=== PATIENT | male | born 1955 | race Hispanic/Latino ===

== ENCOUNTER 2018-06-07 05:28 | Observation (INO) | payer OTHER ==
[2018-06-05 16:32] LABS: BASOPHILS # (AUTO) 0.1 (0.0-0.1); BASOPHILS % 0.9 % (0.0-1.0); EOSINOPHILS # (AUTO) 0.2 (0.0-0.4); EOSINOPHILS % 2.5 % (0.0-6.0); HEMOGLOBIN 15.2 g/dL (14.0-18.0); LYMPHOCYTES # (AUTO) 2.5 (1.0-3.2); LYMPHOCYTES % 26.5 % (18.0-39.1); MEAN CORPUSCULAR HEMOGLOBIN 29.6 pg (28-32); MEAN CORPUSCULAR VOLUME 89.5 fL (81-99); MONOCYTES # (AUTO) 0.6 (0.2-0.8); MONOCYTES % 6.1 % (4.4-11.3); NEUTROPHILS % 63.7 % (38.7-80.0); PLATELET COUNT 224 x10e3/uL (140-360); RED BLOOD COUNT 5.14 x10e6/uL (4.3-5.7)
[2018-06-05 16:42] LABS: INR 0.87; PROTHROMBIN TIME 12.7 seconds (11.9-14.5)
[2018-06-05 16:43] LABS: PARTIAL THROMBOPLASTIN TIME 30.9 seconds (23.8-35.5)
[2018-06-05 16:47] LABS: CALCIUM 10.3 mg/dL (8.4-10.2); CREATININE, SERUM 1.79 mg/dL (0.72-1.25)
--- NOTE | 2018-06-05 17:08 | Diagnostic Imaging Report ---
EXAMINATION: CHEST 2 VIEWS INDICATION: Pre-operative radiographs, lumbar spine surgery. COMPARISON: None FINDINGS: TUBES and LINES: None. LUNGS: Lungs are well inflated. Lungs are clear. There is no evidence of pneumonia or pulmonary edema. PLEURA: No pleural effusion or pneumothorax. HEART AND MEDIASTINUM: The cardiomediastinal silhouette is unremarkable. Status post CABG. BONES AND SOFT TISSUES: No acute radiographic abnormality. Status post median sternotomy. UPPER ABDOMEN: No free air under the diaphragm. IMPRESSION: No acute radiographic abnormality. Signed by: Dr. Mikie Gibson MD on 06/05/2018 5:05 PM
[~2018-06-07] VITALS: Ht 180.3 cm; Wt 96.6 kg
[2018-06-07] VITALS (8 sets, daily range): BP systolic 93–110; BP diastolic 52–59
[~2018-06-07 05:28] MED LIST: ASPIRIN325 MG PO; CRESTOR10 MG PO; CYMBALTA30 MG PO; FUROSEMIDE40 MG PO; GLIMEPIRIDE2 MG PO; LISINOPRIL10 MG PO; METFORMIN HCL500 MG PO; METOPROLOL SUCC25 MG PO; PLAVIX75 MG PO
--- OUTSIDE RECORDS SUMMARY | 2018-06-07 05:33 | XMS REPORT | Continuity of Care Document ---
Author Author [facility] Interface Address Unknown Phone Unavailable Problems Problem Status Onset Date Classification Date Reported Comments Source INCLUDING DISTAL ABDOMINAL AORTA AND JONATHAN Active 03/15/2018 [facility] CHEST PAIN Active 11/08/2017 [facility] UNK Active 07/07/2016 [facility] Frozen shoulder<sup>1</sup> Active Problem 11/15/2017 right [facility] CAD (<span ID="[id number]">Confirmed</span>) Active Problem 11/15/2017 [facility] Occlusion of coronary artery stent Active Problem 11/15/2017 [facility] Stroke Active Problem 11/15/2017 [facility] Diabetes Active Problem 11/15/2017 [facility] SOBOE (<span ID="[id number]">Confirmed</span>) Active Problem 11/15/2017 [facility] Acid reflux Active Problem 11/15/2017 [facility] HTN (<span ID="[id number]">Confirmed</span>) Active Problem 11/15/2017 [facility] Heart attack Resolved Problem 11/15/2017 [facility] S/P CABG x 3 Active Problem 11/15/2017 [facility] Right sided weakness Active Problem 11/15/2017 [facility] Apnea, sleep Resolved Problem 11/15/2017 [facility] ENCOUNTER FOR SCREENING FOR MALIGNANT NE Active [facility] PERSONAL HISTORY OF COLONIC POLYPS Active [facility] CHEST PAIN, UNSPECIFIED Active [facility] ATHSCL [place] ARTERIES OF EXTRM W INTRMT Active [facility] Medications Medication Details Route Status Patient Instructions Ordering Provider Order Date Source Microencapsulated Potassium Chloride 20 MEQ Extended Release Oral Tablet [Klor-Con] 20 mEq=1 tab, PO, Daily, # 30 tab, 0 Refill(s), Pharmacy: [id number] Active 11/12/2017 [facility] Furosemide 40 MG Oral Tablet 40 mg=1 tab, PO, Daily, # 30 tab, 0 Refill(s), Pharmacy: [id number] Active 11/12/2017 [facility] Docusate Sodium 100 MG Oral Capsule [Colace] 100 mg, 1 cap, Route: PO, Drug form: CAP, BID, Dosing Weight 103, kg, Start date: 11/11/17 21:00:00 CDT, Duration: 30 day, Stop date: 12/11/17 17:00:00 CDTNotes: (Same as: Colace) (Do Not Crush) No Longer Active 11/12/2017 [facility] Docusate Sodium 100 MG Oral Capsule [Colace] 100 mg, 1 cap, Route: PO, Drug form: CAP, Daily, Dosing Weight 103, kg, PRN Constipation, Start date: 11/11/17 19:27:00 CDT, Duration: 30 day, Stop date: 12/11/17 19:26:00 CDTNotes: (Same as: Colace) (Do Not Crush) No Longer Active 11/12/2017 [facility] Potassium Chloride 40 mEq, 2 tab, Route: PO, Drug form: ERTAB, ONCE, Dosing Weight 103, kg, Start date: 11/11/17 17:08:00 CDT, Stop date: 11/11/17 17:08:00 CDTNotes: (Same as: K-Dur 20) "Do Not Crush" For patien ts unable to swallow tablet, dissolve in one half glass of water. Allow about 2 minutes for the tablets to disintegrate. Stir before giving to prepare slurry and administer. Please exclude Patient’s with feeding tube less than 14 Far[place] (Dobhoff, J-tube etc) and pediatric and patients. With food and full glass of water Inactive 11/11/2017 [facility] Magnesium Sulfate 2 gm, 50 mL, Route: IVPB, Drug form: INJ, ONCE, Dosing Weight 103, kg, Start date: 11/11/17 17:08:00 CDT, Stop date: 11/11/17 17:08:00 CDTNotes: WASTE: F/P - Sink; E - Municipal Trash Bin Inactive 11/11/2017 [facility] Bumex 1 mg, 1 tab, Route: PO, Drug form: TAB, BID, Dosing Weight 103, kg, Start date: 11/11/17 17:00:00 CDT, Duration: 30 day, Stop date: 12/11/17 9:00:00 CDTNotes: (Same As: Bumex) No Longer Active 11/11/2017 [facility] bumetanide 10 mg + Sodium Chloride 0.9% (titrate) 60 mL 60 mL, Rate: Infuse as directed, Dosing Weight 100, kg, Route: IV, Total Volume: 100 mL, Start Date: 11/10/17 15:11:00 CDT, Duration: 30 day, Stop date: 12/10/17 15:10:00 CDT, Replace Every: 24 hrNotes: (Same As: Bumex) No Longer Active 11/10/2017 [facility] Nitroglycerin 100 mg, 250 mL, Rate: 5 mcg/min, Start Dose: 10 microgram/min, Titration: do not titrate, Goal(s): MAP >60, Max Dose: 200 mcg/min, Route: IV, Dosing Weight 100 kg, Total Volume: 250, Start date: 10/23 15:11:00 CDT, Duration: 30 day, Stop date: ...Notes: (Same as:Tridil) Final conc=0.4 mg/ml. Premix bottle. No Longer Active 11/10/2017 [facility] Acetaminophen 650 mg, Route: PO, Drug form: TAB, Q4H, Dosing Weight 100, kg, PRN Pain Score 1-3, Start date: 11/10/17 15:10:00 CDT, Duration: 30 day, Stop date: 12/10/17 15:09:00 CDT Inactive 11/10/2017 [facility] Aluminum Hydroxide 40 MG/ML / Magnesium Hydroxide 40 MG/ML / Simethicone 4 MG/ML Oral Suspension 30 mL, Route: PO, Drug Form: SUSP, Dosing Weight 100, kg, Q12H, PRN Indigestion, Start date: 11/10/17 15:10:00 CDT, Duration: 30 day, Stop date: 12/10/17 15:09:00 CDTNotes: (aluminum hydroxide-magnesium hyd-simethicone [phone]/5ml 30 ml ud MICHAEL) No Longer Active 11/10/2017 [facility] aspirin 325 mg tablet 325 mg, 1 tab, Route: PO, Drug form: TAB, Bedtime, Dosing Weight 100, kg, Start date: 11/09/17 21:00:00 CDT, Duration: 30 day, Stop date: 12/08/17 21:00:00 CDTNotes: Take with food. No Longer Active 11/10/2017 [facility] Januvia 50 mg, 2 tab, Route: PO, Drug form: TAB, Bedtime, Dosing Weight 100, kg, Start date: 11/09/17 21:00:00 CDT, Duration: 30 day, Stop date: 12/08/17 21:00:00 CDTNotes: Same as Januvia No Longer Active 11/10/2017 [facility] Lisinopril 5 mg, Route: PO, Drug form: TAB, Bedtime, Dosing Weight 100, kg, Start date: 11/09/17 21:00:00 CDT, Duration: 30 day, Stop date: 12/08/17 21:00:00 CDT No Longer Active 11/10/2017 [facility] metoprolol extended release 25 mg, 1 tab, Route: PO, Drug form: ERTAB, Daily, Start date: 11/09/17 9:00:00 CDT, Duration: 30 day, Stop date: 12/08/17 9:00:00 CDTNotes: (Same as: Toprol XL) Do Not Crush No Longer Active 11/09/2017 [facility] Lisinopril 10 mg, 2 tab, Route: PO, Drug form: TAB, Daily, Dosing Weight 100, kg, Start date: 11/09/17 9:00:00 CDT, Duration: 30 day, Stop date: 12/08/17 9:00:00 CDTNotes: (Same as: Prinivil, Zestril) No Longer Active 11/09/2017 [facility] glimepiride 4 mg, PO, Daily, 0 Refill(s) Active 11/09/2017 [facility] Enoxaparin 100 mg, 1 mL, Route: SUB-Q, Drug form: INJ, [id number], Dosing Weight 100, kg, Priority: STAT, Start date: 11/09/17 7:14:00 CDT, Duration: 30 day, Stop date: 12/08/17 20:00:00 CDTNotes: Nurse to ensure do cumentation of patient education per anticoagulation policy. (Same as: Lovenox) No Longer Active 11/09/2017 [facility] Nitroglycerin 100 mg, 250 mL, Rate: Titrate, Start Dose: 5 microgram/min, Titration: DNT, Goal(s): Chest pain and SBP between 100 - 150 mmHg, Max Dose: 5 mcg, Route: IV, Dosing Weight 100 kg, Total Volume: 250, Start date: 11/09/17 7:13:00 CDT, Duration: 30 day, St...Notes: (Same as:Tridil) Final conc=0.4 mg/ml. Premix bottle. No Longer Active 11/09/2017 [facility] heparin additive 25,000 unit [11.7 unit/kg/hr] + Premix Diluent Dextrose 5% 500 mL 500 mL, Rate: 19.93 ml/hr, Infuse over: 25.1 hr, Route: IV, Dosing Weight 85.18 kg, Total Volume: 500 mL, Start date: 11/09/17 0:06:00 CDT, Stop date: 12/09/17 0:05:00 CDT, 2.08, m2 Inactive 11/09/2017 [facility] Heparin 30 unit/kg Bolus (Heparin Dosing Weight) Route: IVP, PRN, 2,600 unit, 2.6 mL, Drug form: INJ, PRN, Heparin Protocol, Start date: 11/09/17 0:06:00 CDT Stop date: 12/09/17 0:05:00 CDT, 30 day Inactive 11/09/2017 [facility] Heparin 60 unit/kg Bolus (Heparin Dosing Weight) Route: IVP, PRN, 5,100 unit, 5.1 mL, Drug form: INJ, PRN, Heparin Protocol, Start date: 11/09/17 0:06:00 CDT Stop date: 12/09/17 0:05:00 CDT, 30 day Inactive 11/09/2017 [facility] gabapentin 600 MG Oral Tablet 600 mg, 2 cap, Route: PO, Drug form: CAP, Q8H, Dosing Weight 100, kg, Start date: 11/09/17 0:00:00 CDT, Duration: 30 day, Stop date: 12/08/17 16:00:00 CDTNotes: (Same as: Neurontin) No Longer Active 11/09/2017 [facility] rosuvastatin 10 mg, 2 tab, Route: PO, Drug form: TAB, Bedtime, Dosing Weight 100, kg, Start date: 11/08/17 21:56:00 CDT, Duration: 30 day, Stop date: 12/08/17 21:00:00 CDTNotes: Same as Crestor No Longer Active 11/09/2017 [facility] Plavix 75 mg, 1 tab, Route: PO, Drug form: TAB, Bedtime, Dosing Weight 100, kg, Start date: 11/08/17 21:55:00 CDT, Duration: 30 day, Stop date: 12/08/17 21:00:00 CDTNotes: (Same As: Plavix) No Longer Active 11/09/2017 [facility] Insulin Lispro 1 unit, 0.01 mL, Route: SUB-Q, Drug form: SOLN, Bedtime, Dosing Weight 100, kg, PRN Blood Glucose Results, Start date: 11/08/17 21:41:00 CDT, Duration: 30 day, Stop date: 12/08/17 21:40:00 CDTNotes: (Same as: Humalog ) Roll in palms of hands gently; Do not shake `vigorously. "Single Patient Use Only " WASTE: F/P - Black; E - [employer] Trash Bin Stable for 28 days at room temperature. Expires in days from Date No Longer Active 11/09/2017 [facility] Dextrose 50% Syringe 25 gm, 50 mL, Route: IVP, Drug Form: INJ, Dosing Weight 100, kg, PRN, PRN Blood Glucose Results, Start date: 11/08/17 21:41:00 CDT, Duration: 30 day, Stop date: 12/08/17 21:40:00 CDT No Longer Active 11/09/2017 [facility] Glucagon 1 mg, Route: IM, Drug form: PDR/INJ, PRN, Dosing Weight 100, kg, PRN Blood Glucose Results, Start date: 11/08/17 21:41:00 CDT, Duration: 30 day, Stop date: 12/08/17 21:40:00 CDT No Longer Active 11/09/2017 [facility] Metformin hydrochloride 1000 MG Oral Tablet 1,000 mg=1 tab, PO, BID-Meals, # 30 tab, 0 Refill(s) No Longer Active 11/09/2017 [facility] lisinopril 10 mg oral tablet 10 mg=1 tab, PO, Daily, # 30 tab, 0 Refill(s) No Longer Active 11/09/2017 [facility] gabapentin 600 MG Oral Tablet 600 mg=1 tab, PO, TID, 0 Refill(s) Active 11/09/2017 [facility] Saline Flush 0.9% 10 ml, Route: IVP, Drug Form: INJ, Dosing Weight 100, kg, Q12H, Start date: 11/08/17 21:00:00 CDT, Duration: 30 day, Stop date: 12/08/17 9:00:00 CDTNotes: (Same as: BD Posiflush) No Longer Active 11/09/2017 [facility] Morphine 6 mg, 3 mL, Route: PO, Drug form: SOLN, Q4H, Dosing Weight 100, kg, PRN Pain Score 7-10, Start date: 11/08/17 19:53:00 CDT, Stop date: 12/08/17 19:52:00 CDTNotes: (Same as:MORPhine Sulfate) No Longer Active 11/09/2017 [facility] Acetaminophen 325 MG / Hydrocodone Bitartrate 5 MG Oral Tablet 1 tab, Route: PO, Drug Form: TAB, Dosing Weight 100, kg, Q4H, PRN Pain Score 4-6, Start date: 11/08/17 19:53:00 CDT, Duration: 30 day, Stop date: 12/08/17 19:52:00 CDTNotes: (Same as: Leslie 325/5) Do not exceed 4gm/day of acetaminophen. No Longer Active 11/09/2017 [facility] Acetaminophen 650 mg, 2 tab, Route: PO, Drug form: TAB, Q4H, Dosing Weight 100, kg, PRN Pain 1-3/Temp > 100.4 F, Start date: 11/08/17 19:53:00 CDT, Duration: 30 day, Stop date: 12/08/17 19:52:00 CDTNotes: Do not e xceed 4 gm/day. (Same as: Tylenol) No Longer Active 11/09/2017 [facility] Ondansetron 4 mg, 2 mL, Route: IVP, Drug form: INJ, Q6H, Dosing Weight 100, kg, PRN Nausea & Vomiting, Start date: 11/08/17 19:53:00 CDT, Duration: 30 day, Stop date: 12/08/17 19:52:00 CDTNotes: (Same as: Zofran) MEDICATION WASTE Product Size: 4 mg Product Wasted: ___ mg No Longer Active 11/09/2017 [facility] Saline Flush 0.9% 10 ml, Route: IVP, Drug Form: INJ, Dosing Weight 100, kg, PRN, PRN Line Flush, Start date: 11/08/17 19:44:00 CDT, Duration: 30 day, Stop date: 12/08/17 19:43:00 CDTNotes: (Same as: BD Posiflush) No Longer Active 11/09/2017 [facility] Nitroglycerin 0.4 mg, 1 tab, Route: SL, Drug form: TAB, Q5Min, Dosing Weight 100, kg, PRN Chest Pain, Start date: 11/08/17 19:44:00 CDT, Duration: 3 doses or times, Stop date: Limited # of timesNotes: (Same as:Nitroquick, Nitrostat) "Do Not Crush" Sublingual tablet No Longer Active 11/09/2017 [facility] Nitroglycerin 0.02 MG/MG Topical Ointment 0.5 inch, Route: TOP, Drug Form: OINT, Dosing Weight 100, kg, ONCE, STAT, Start date: 11/08/17 18:39:00 CDT, Stop date: 11/08/17 18:39:00 CDT Inactive 11/08/2017 [facility] Morphine 2 mg, Route: IVP, ONCE, Dosing Weight 100, kg, Priority: STAT, Start date: 11/08/17 18:01:00 CDT, Stop date: 11/08/17 18:01:00 CDT Inactive 11/08/2017 [facility] Aspirin 324 mg, Route: PO, ONCE, Dosing Weight 91.955, kg, Priority: STAT, Start date: 11/08/17 17:58:00 CDT, Stop date: 11/08/17 17:58:00 CDT Inactive 11/08/2017 [facility] Saline Flush 0.9% 10 mL, Route: IVP, Drug Form: INJ, Dosing Weight 91.955, kg, PRN, PRN Line Flush, Start date: 11/08/17 17:58:00 CDT, Duration: 30 day, Stop date: 12/08/17 17:57:00 CDTNotes: (Same as: BD Posiflush) Inactive 11/08/2017 [facility] Sodium Chloride 0.154 MEQ/ML Injectable Solution 1,000 mL, Rate: 25 ml/hr, Infuse over: 40 hr, Route: IV, Dosing Weight 91.955 kg, Total Volume: 1,000, Start date: 07/20/16 10:00:00 CDT, Duration: 30 day, Stop date: 08/19/16 9:59:00 CDT Inactive 07/20/2016 [facility] Aspirin 325 MG Oral Tablet 325 mg=1 tab, PO, Bedtime, # 90 tab, 0 Refill(s) Active 07/19/2016 [facility] metoprolol 25 mg oral tablet, extended release 25 mg=1 tab, PO, Bedtime, # 30 tab, 0 Refill(s) Active 07/19/2016 [facility] sitagliptin 50 MG Oral Tablet [Januvia] 50 mg=1 tab, PO, Bedtime, # 90 tab, 1 Refill(s) Active 07/19/2016 [facility] clopidogrel 75 MG Oral Tablet [Plavix] 75 mg=1 tab, PO, Bedtime, # 30 tab, 0 Refill(s) Active 07/19/2016 [facility] rosuvastatin 10 mg oral tablet 10 mg=1 tab, PO, Bedtime, # 30 tab, 0 Refill(s) Active 07/19/2016 [facility] lisinopril 5 mg oral tablet 5 mg=1 tab, PO, Bedtime, # 30 tab, 0 Refill(s) Active 07/19/2016 [facility] 24 HR dapagliflozin 10 MG / Metformin hydrochloride 1000 MG Extended Release Oral Tablet [Xigduo] 1 tab, PO, Bedtime, 0 Refill(s) Active 07/19/2016 [facility] Allergies, Adverse Reactions, Alerts Substance Category Reaction Severity Reaction type Status Date Reported Comments Source Immunizations Immunization Date Given Site Status Last Updated Comments Source pneumococcal 23-valent vaccine 11/12/2017 Left deltoid completed [facility] Results Order Name Results Value Reference Range Date Interpretation Comments Source Spine lumbar w/wo contrast MRI Spine lumbar w/wo contrast MRI Clinical Indication: - M96.1 Postlaminectomy syndrome, not elsewhere classified progressive lower back pain and radiculopathy. Patient is status post surgery 2008 Comparison: None TECHNIQUE: Multiplanar T1, T2, STIR weighted contrast MRI of the lumbar spine is performed on the 1.5 Pilar magnet. 10 mL of Dotarem was administered. FINDINGS: ALIGNMENT AND GENERAL ASSESSMENT: The conus medullaris is normally positioned and there is no enhancing intrathecal mass. There is no arachnoiditis, discitis or osteomyelitis. The psoas and spinae erecta muscles are normal. The partially visualized sacroiliac joints are intact. There is no fracture, listhesis or lysis. There is no osseous metastatic disease. DISC SPACES: T12-L1: There is no central or foraminal stenosis. There is a small central Schmorl's node. L1-L2: There is a central Schmorl's node. There is no spinal or foraminal stenosis. L2-L3: The disc space is minimally desiccated and narrowed and there is a 3 mm right lateral bulging annulus and a right lateral Schmorl's node with Modic 2 signal alteration. There is minimal right subarticular and bilateral foraminal stenosis. L3-L4: There is a 2 mm lateral bulge in the annulus seen bilaterally without significant central or foraminal stenosis. L4-L5: There is a 4 to 5 mm diffuse bulge of the annulus with a peripheral annular fissures, seen bilaterally. There is hypertrophic change ligamentum flavum, with a depth of 5 mm. There is a short pedicle configuration of the spinal canal with severe lateral recess stenosis moderate bilateral foraminal stenosis and central canal stenosis. L5-S1: There is a rudimentary S1-S2 disc space. Anterior and posterior osseous fusion with interpedicle screws and stabilizing rods are in place along with anterior fusion cage. There is no central or S1 lateral recess stenosis. Minimal lateral spondylosis without foraminal stenosis is present. A subtle left-sided laminotomy is suspected. There is no meningocele formation. IMPRESSION: L4-L5: There is a 4 to 5 mm diffuse bulge of the annulus with a peripheral annular fissures, seen bilaterally. There is hypertrophic change ligamentum flavum, with a depth of 5 mm. There is a short pedicle configuration of the spinal canal with severe lateral recess stenosis moderate bilateral foraminal stenosis and central canal stenosis. L5-S1: There is a rudimentary S1-S2 disc space. Anterior and posterior osseous fusion with interpedicle screws and stabilizing rods are in place along with anterior fusion cage. There is no central or S1 lateral recess stenosis. Minimal lateral spondylosis without foraminal stenosis is present. A subtle left-sided laminotomy is suspected. There is no meningocele formation. There is no arachnoiditis, discitis or osteomyelitis. SL: JONNA 05/14/2018 - - Read by: Markell Dockery MD Dictated Date/time: 05/14/18 09:57 Electronically Signed by: Markell Dockery MD 05/14/18 10:07 FINAL REPORT [facility] [place] Abdominal Aorta with runoff CTA Abdominal Aorta with runoff CTA AORTOFEMORAL CTA: HISTORY: Peripheral arterial disease with intermittent claudication bilateral lower extremities. TECHNIQUE: Multislice helical imaging was done from the lower thoracic aorta through the feet bilaterally during IV contrast bolus. Sagittal and coronal MIP tomograms were also done. Sagittal and coronal MIP tomograms and 3-D volume rendered images were obtained. DLP 818 mGycm. AORTOILIAC: There is diffuse calcified and noncalcified plaque throughout the distal thoracic aorta, abdominal aorta and iliac arteries. There is mild focal narrowing of the infrarenal aorta and mid right common iliac artery, less than 50%. There is no other significant aortoiliac stenosis. The celiac, SMA and KATIANA trunks are patent. There is moderate stenosis of the proximal celiac trunk, mild narrowing of the proximal SMA, and moderate stenosis of the proximal KATIANA trunk. There is mild ostial narrowing of the right renal artery without other significant renal artery stenosis. RIGHT LOWER EXTREMITY: Diffuse atherosclerotic changes are seen throughout the femoropopliteal segment and runoff vessels. There is multifocal stenotic disease of the proximal popliteal artery with focal severe stenosis at the knee level. There is severe multifocal stenotic and occlusive disease of the runoff vessels below the knee without continuous runoff. There is a dominant distal posterior tibial artery. LEFT LOWER EXTREMITY: Diffuse atherosclerotic changes are seen throughout the femoropopliteal segment and runoff vessels. There is no significant femoropopliteal stenosis. Focal significant stenosis in the tibioperoneal trunk is noted. There is multifocal stenotic and occlusive disease in the runoff vessels with patent single vessel runoff via the posterior tibial artery. NON-ANGIOGRAPHIC FINDINGS: The liver, spleen, pancreas, kidneys and adrenal glands show no significant abnormalities. The gallbladder is unremarkable. There are no significant gastrointestinal tract abnormalities. There are postsurgical changes at the lumbosacral junction with interbody spacers at the L5-S1 disc space and left posterior screw and eliud at L5-S1. IMPRESSION: 1. Diffuse atherosclerotic disease in the abdomen and pelvis and lower extremities. 2. No significant aortoiliac stenosis. 3. Focal severe stenosis of the mid right popliteal artery with severe stenotic and occlusive disease in the right lower extremity runoff vessels, without continuous runoff. 4. No significant left femoropopliteal stenosis, with single vessel runoff in the left lower extremity via the posterior tibial artery. [id number] 03/21/2018 - - Read by: Dontrell Cid MD Dictated Date/time: 03/21/18 13:30 Electronically Signed by: Dontrell Cid MD 03/21/18 13:56 FINAL REPORT [facility] ELECTROLYTES AGAP 12.2 meq/L 10.0 - 20.0 11/12/2017 [facility] eGFR 80 mL/min/1.73m2 11/12/2017 Result Comment: The eGFR is calculated using the CKD-EPI formula. In most young, healthy individuals the eGFR will be >90 mL/min/1.73m2. The eGFR declines with age. An eGFR of 60-89 may be normal in some populations, particularly the elderly, for whom the CKD-EPI formula has not been extensively validated. Use of the eGFR is not recommended in the following populations: Individuals with unstable creatinine concentrations, including patients and those with serious co-morbid conditions. Patients with extremes in muscle mass or diet. The data above are obtained from the National Kidney Disease Education Program (NKDEP) which additionally recommends that when the eGFR is used in patients with extremes of body mass index for purposes of drug dosing, the eGFR should be multiplied by the estimated BMI. [facility] ELECTROLYTES Calcium Lvl 9.1 mg/dL 8.5 - 10.5 11/12/2017 [facility] ELECTROLYTES Glucose Lvl 173 mg/dL 70 - 99 11/12/2017 [facility] ELECTROLYTES BUN 23 mg/dL 7 - 22 11/12/2017 [facility] Creatinine Lvl 1.01 mg/dL 0.50 - 1.40 11/12/2017 [facility] ELECTROLYTES CO2 25 meq/L 24 - 32 11/12/2017 [facility] ELECTROLYTES Sodium Lvl 135 meq/L 135 - 145 11/12/2017 [facility] ELECTROLYTES Chloride Lvl 102 meq/L 95 - 109 11/12/2017 [facility] ELECTROLYTES Potassium Lvl 4.2 meq/L 3.5 - 5.1 11/12/2017 [facility] MPV 8.0 fL 7.4 - 10.4 11/12/2017 [facility] Platelet 157 K/CMM 133 - 450 11/12/2017 [facility] RDW 13.7 % 11.5 - 14.5 11/12/2017 [facility] MCHC 34.2 g/dL 32.0 - 36.0 11/12/2017 [facility] Hgb 13.5 g/dL 14.0 - 18.0 11/12/2017 [facility] MCH 30.2 pg 27.0 - 31.0 11/12/2017 [facility] MCV 88.2 fL 80.0 - 94.0 11/12/2017 [facility] Hct 39.3 % 42.0 - 54.0 11/12/2017 [facility] RBC 4.46 M/CMM 4.70 - 6.10 11/12/2017 [facility] WBC 6.5 K/CMM 3.7 - 10.4 11/12/2017 [facility] Monocytes # 0.5 K/CMM 0.0 - 0.8 11/12/2017 [facility] Lymphocytes # 1.4 K/CMM 1.0 - 5.5 11/12/2017 [facility] HEMATOLOGY Segs-Bands # 4.2 K/CMM 1.5 - 8.1 11/12/2017 [facility] Basophils # 0.1 K/CMM 0.0 - 0.2 11/12/2017 [facility] HEMATOLOGY Eosinophils # 0.3 K/CMM 0.0 - 0.5 11/12/2017 [facility] HEMATOLOGY Segs 63.9 % 45.0 - 75.0 11/12/2017 [facility] HEMATOLOGY Basophils 0.8 % 0.0 - 1.0 11/12/2017 [facility] HEMATOLOGY Eosinophils 5.0 % 0.0 - 4.0 11/12/2017 [facility] Monocytes 8.4 % 2.0 - 12.0 11/12/2017 [facility] Lymphocytes 21.9 % 20.0 - 40.0 11/12/2017 [facility] CHEM PANEL Magnesium Lvl 1.8 mg/dL 1.8 - 2.4 11/11/2017 [facility] CHEM PANEL eGFR 76 mL/min/1.73m2 11/11/2017 Result Comment: The eGFR is calculated using the CKD-EPI formula. In most young, healthy individuals the eGFR will be >90 mL/min/1.73m2. The eGFR declines with age. An eGFR of 60-89 may be normal in some populations, particularly the elderly, for whom the CKD-EPI formula has not been extensively validated. Use of the eGFR is not recommended in the following populations: Individuals with unstable creatinine concentrations, including patients and those with serious co-morbid conditions. Patients with extremes in muscle mass or diet. The data above are obtained from the National Kidney Disease Education Program (NKDEP) which additionally recommends that when the eGFR is used in patients with extremes of body mass index for purposes of drug dosing, the eGFR should be multiplied by the estimated BMI. [facility] CHEM PANEL Glucose Lvl 207 mg/dL 70 - 99 11/11/2017 [facility] CHEM PANEL AGAP 14.9 meq/L 10.0 - 20.0 11/11/2017 [facility] CHEM PANEL Calcium Lvl 8.8 mg/dL 8.5 - 10.5 11/11/2017 [facility] CHEM PANEL BUN 21 mg/dL 7 - 22 11/11/2017 [facility] CHEM PANEL Potassium Lvl 3.9 meq/L 3.5 - 5.1 11/11/2017 [facility] CHEM PANEL Sodium Lvl 134 meq/L 135 - 145 11/11/2017 [facility] CHEM PANEL CO2 25 meq/L 24 - 32 11/11/2017 [facility] CHEM PANEL Chloride Lvl 98 meq/L 95 - 109 11/11/2017 [facility] CHEM PANEL Creatinine Lvl 1.06 mg/dL 0.50 - 1.40 11/11/2017 [facility] ELECTROLYTES AGAP 12.2 meq/L 10.0 - 20.0 11/10/2017 [facility] ELECTROLYTES eGFR 94 mL/min/1.73m2 11/10/2017 Result Comment: The eGFR is calculated using the CKD-EPI formula. In most young, healthy individuals the eGFR will be >90 mL/min/1.73m2. The eGFR declines with age. An eGFR of 60-89 may be normal in some populations, particularly the elderly, for whom the CKD-EPI formula has not been extensively validated. Use of the eGFR is not recommended in the following populations: Individuals with unstable creatinine concentrations, including patients and those with serious co-morbid conditions. Patients with extremes in muscle mass or diet. The data above are obtained from the National Kidney Disease Education Program (NKDEP) which additionally recommends that when the eGFR is used in patients with extremes of body mass index for purposes of drug dosing, the eGFR should be multiplied by the estimated BMI. [facility] ELECTROLYTES Calcium Lvl 8.6 mg/dL 8.5 - 10.5 11/10/2017 [facility] ELECTROLYTES CO2 25 meq/L 24 - 32 11/10/2017 [facility] ELECTROLYTES Sodium Lvl 137 meq/L 135 - 145 11/10/2017 [facility] ELECTROLYTES Creatinine Lvl 0.87 mg/dL 0.50 - 1.40 11/10/2017 [facility] ELECTROLYTES BUN 16 mg/dL 7 - 22 11/10/2017 [facility] ELECTROLYTES Glucose Lvl 124 mg/dL 70 - 99 11/10/2017 [facility] ELECTROLYTES Chloride Lvl 104 meq/L 95 - 109 11/10/2017 [facility] ELECTROLYTES Potassium Lvl 4.2 meq/L 3.5 - 5.1 11/10/2017 [facility] MPV 8.2 fL 7.4 - 10.4 11/10/2017 [facility] Platelet 160 K/CMM 133 - 450 11/10/2017 [facility] RDW 13.7 % 11.5 - 14.5 11/10/2017 [facility] MCHC 33.7 g/dL 32.0 - 36.0 11/10/2017 [facility] RBC 4.21 M/CMM 4.70 - 6.10 11/10/2017 [facility] MCH 29.8 pg 27.0 - 31.0 11/10/2017 [facility] MCV 88.4 fL 80.0 - 94.0 11/10/2017 [facility] Hct 37.3 % 42.0 - 54.0 11/10/2017 [facility] Hgb 12.6 g/dL 14.0 - 18.0 11/10/2017 [facility] WBC 7.7 K/CMM 3.7 - 10.4 11/10/2017 [facility] CARDIAC ENZYMES Total CK 159 unit/L 12 - 191 11/09/2017 [facility] CARDIAC ENZYMES CK MB 6.3 ng/mL 0.5 - 3.6 11/09/2017 [facility] CARDIAC ENZYMES Troponin-I 0.43 ng/mL 0.00 - 0.40 11/09/2017 [facility] HEMATOLOGY MCHC 33.8 g/dL 32.0 - 36.0 11/09/2017 [facility] HEMATOLOGY MCH 29.9 pg 27.0 - 31.0 11/09/2017 [facility] HEMATOLOGY MCV 88.5 fL 80.0 - 94.0 11/09/2017 [facility] HEMATOLOGY Hct 36.8 % 42.0 - 54.0 11/09/2017 [facility] Hgb 12.4 g/dL 14.0 - 18.0 11/09/2017 [facility] HEMATOLOGY MPV 7.8 fL 7.4 - 10.4 11/09/2017 [facility] HEMATOLOGY RDW 13.6 % 11.5 - 14.5 11/09/2017 [facility] HEMATOLOGY Platelet 146 K/CMM 133 - 450 11/09/2017 [facility] RBC 4.15 M/CMM 4.70 - 6.10 11/09/2017 [facility] WBC 7.5 K/CMM 3.7 - 10.4 11/09/2017 [facility] HEMATOLOGY Basophils 0.6 % 0.0 - 1.0 11/09/2017 [facility] HEMATOLOGY Eosinophils 4.4 % 0.0 - 4.0 11/09/2017 [facility] HEMATOLOGY Monocytes 8.5 % 2.0 - 12.0 11/09/2017 [facility] HEMATOLOGY Lymphocytes 23.4 % 20.0 - 40.0 11/09/2017 [facility] HEMATOLOGY Monocytes # 0.6 K/CMM 0.0 - 0.8 11/09/2017 [facility] HEMATOLOGY Lymphocytes # 1.8 K/CMM 1.0 - 5.5 11/09/2017 [facility] HEMATOLOGY Segs-Bands # 4.7 K/CMM 1.5 - 8.1 11/09/2017 [facility] HEMATOLOGY Eosinophils # 0.3 K/CMM 0.0 - 0.5 11/09/2017 [facility] HEMATOLOGY Segs 63.1 % 45.0 - 75.0 11/09/2017 [facility] LIPIDS VLDL 18 11/09/2017 [facility] LIPIDS Trig 92 mg/dL <=149 mg/dL 11/09/2017 [facility] LIPIDS HDL 37 mg/dL >=61 mg/dL 11/09/2017 [facility] LIPIDS LDL (Calculated) 54 mg/dL <=99 mg/dL 11/09/2017 [facility] LIPIDS Chol 109 mg/dL <=199 mg/dL 11/09/2017 [facility] LIPIDS CHD Risk 2.95 4.00 - 7.30 11/09/2017 [facility] HEMATOLOGY INR 1.05 0.85 - 1.17 11/09/2017 [facility] HEMATOLOGY PT 13.7 s 12.0 - 14.7 11/09/2017 [facility] HEMATOLOGY PTT 29.7 s 22.9 - 35.8 11/09/2017 [facility] CARDIAC ENZYMES Troponin-I 0.42 ng/mL 0.00 - 0.40 11/09/2017 [facility] CARDIAC ENZYMES CK MB 5.5 ng/mL 0.5 - 3.6 11/09/2017 [facility] CARDIAC ENZYMES Total CK 165 unit/L 12 - 191 11/09/2017 [facility] CARDIAC ENZYMES CK MB Index 2.6 0.0 - 2.5 11/08/2017 [facility] CARDIAC ENZYMES BNP 134 pg/mL <=100 pg/mL 11/08/2017 [facility] CARDIAC ENZYMES CK MB 4.6 ng/mL 0.5 - 3.6 11/08/2017 [facility] CARDIAC ENZYMES Troponin-I 0.05 ng/mL 0.00 - 0.40 11/08/2017 [facility] CARDIAC ENZYMES Total CK 178 unit/L 12 - 191 11/08/2017 [facility] CHEM PANEL B/C Ratio 21 6 - 25 11/08/2017 [facility] CHEM PANEL A/G Ratio 1.0 0.7 - 1.6 11/08/2017 [facility] CHEM PANEL Globulin 3.5 g/dL 2.7 - 4.2 11/08/2017 [facility] CHEM PANEL AST 14 unit/L 0 - 37 11/08/2017 [facility] CHEM PANEL Bili Total 0.4 mg/dL 0.2 - 1.3 11/08/2017 [facility] CHEM PANEL Alk Phos 63 unit/L 39 - 136 11/08/2017 [facility] CHEM PANEL Total Protein 7.1 g/dL 6.4 - 8.4 11/08/2017 [facility] CHEM PANEL Albumin Lvl 3.6 g/dL 3.5 - 5.0 11/08/2017 [facility] CHEM PANEL ALT 23 unit/L 0 - 65 11/08/2017 [facility] HEMATOLOGY Lymphocytes 16.2 % 20.0 - 40.0 11/08/2017 [facility] HEMATOLOGY Segs 72.7 % 45.0 - 75.0 11/08/2017 [facility] HEMATOLOGY Eosinophils 3.3 % 0.0 - 4.0 11/08/2017 [facility] Monocytes 7.2 % 2.0 - 12.0 11/08/2017 [facility] HEMATOLOGY Segs-Bands # 6.2 K/CMM 1.5 - 8.1 11/08/2017 [facility] Monocytes # 0.6 K/CMM 0.0 - 0.8 11/08/2017 [facility] Lymphocytes # 1.4 K/CMM 1.0 - 5.5 11/08/2017 [facility] Basophils 0.6 % 0.0 - 1.0 11/08/2017 [facility] Basophils # 0.1 K/CMM 0.0 - 0.2 11/08/2017 [facility] Eosinophils # 0.3 K/CMM 0.0 - 0.5 11/08/2017 [facility] Ext Lower Venous Doppler Bilat US Ext Lower Venous Doppler Bilat US Patient Name: ANTOINETTE ANTOINE : 1955; Age: 62 years y/o Male MR: [id number] Study: Ext Lower Venous Doppler Bilat US 11/08/2017 9:39 PM CDT Clinical Indication: - patient with right leg swelling; Comparison: None TECHNIQUE: Sonographic evaluation of the bilateral lower extremity veins was performed using high resolution B-mode imaging, along with pulse and color Doppler imaging. FINDINGS: Right lower extremity: The common femoral vein, femoral vein, popliteal vein and visualized posterior tibial/calf veins are patent. No evidence for deep venous thrombosis from the right common femoral vein to the right popliteal vein. The saphenofemoral junction is unremarkable. Left lower extremity: The common femoral vein, femoral vein, popliteal vein and visualized posterior tibial/calf veins are patent. No evidence for deep venous thrombosis from the left common femoral vein to the left popliteal vein. The saphenofemoral junction is unremarkable. IMPRESSION: No evidence for deep venous thrombosis from the common femoral vein to the popliteal vein bilaterally. SL: RENNY 11/08/2017 - - Read by: Jan Sheriff MD Dictated Date/time: 11/08/17 22:49 Electronically Signed by: Jan Sheriff MD 11/08/17 22:51 FINAL REPORT [facility] Chest 1view DX Chest 1view DX Clinical Indication: - chest pain, cardiac eval. Comparison: None. TECHNIQUE: AP 1 view chest radiograph was performed. FINDINGS: LUNGS: Normal lung volumes. No interstitial or airspace opacities. No pleural effusions or pneumothorax. HEART AND MEDIASTINUM: There is mild enlargement of the cardiac silhouette. The patient is status post prior median sternotomy and coronary artery bypass graft surgery with sternal wires. The pulmonary vasculature is normal. There is a mildly tortuous thoracic aorta. The trachea is midline. OSSEOUS STRUCTURES: No acute abnormality seen. IMPRESSION: 1. No confluent infiltrates in the lungs. Mild enlargement of the cardiac silhouette. SL: [id number] 11/08/2017 - - Read by: Louis Whatley MD Dictated Date/time: 11/08/17 18:22 Electronically Signed by: Louis Whatley MD 11/08/17 18:23 FINAL REPORT [facility] ELECTROLYTES Sodium Lvl 137 meq/L 135 - 145 07/19/2016 [facility] ELECTROLYTES Creatinine Lvl 0.81 mg/dL 0.50 - 1.40 07/19/2016 [facility] ELECTROLYTES BUN 20 mg/dL 7 - 22 07/19/2016 [facility] ELECTROLYTES Glucose Lvl 111 mg/dL 70 - 99 07/19/2016 [facility] ELECTROLYTES CO2 31 meq/L 24 - 32 07/19/2016 [facility] ELECTROLYTES Chloride Lvl 99 meq/L 95 - 109 07/19/2016 [facility] ELECTROLYTES Potassium Lvl 4.7 meq/L 3.5 - 5.1 07/19/2016 [facility] ELECTROLYTES AGAP 11.7 meq/L 10.0 - 20.0 07/19/2016 [facility] ELECTROLYTES Calcium Lvl 9.5 mg/dL 8.5 - 10.5 07/19/2016 [facility] ELECTROLYTES eGFR 98 mL/min/1.73m2 07/19/2016 Result Comment: The eGFR is calculated using the CKD-EPI formula. In most young, healthy individuals the eGFR will be >90 mL/min/1.73m2. The eGFR declines with age. An eGFR of 60-89 may be normal in some populations, particularly the elderly, for whom the CKD-EPI formula has not been extensively validated. Use of the eGFR is not recommended in the following populations: Individuals with unstable creatinine concentrations, including patients and those with serious co-morbid conditions. Patients with extremes in muscle mass or diet. The data above are obtained from the National Kidney Disease Education Program (NKDEP) which additionally recommends that when the eGFR is used in patients with extremes of body mass index for purposes of drug dosing, the eGFR should be multiplied by the estimated BMI. [facility] Vital Signs Vital Sign Value Date Comments Source Systolic (mm Hg) 123 11/12/2017 [facility] Diastolic (mm Hg) 74 11/12/2017 [facility] Temperature Oral (F) 97.8 F 11/12/2017 [facility] Heart Rate 52 11/12/2017 [facility] Respitory Rate 18 11/12/2017 [facility] Respitory Rate 18 11/12/2017 [facility] Heart Rate 55 11/12/2017 [facility] Temperature Oral (F) 97.7 F 11/12/2017 [facility] Systolic (mm Hg) 144 11/12/2017 [facility] Diastolic (mm Hg) 69 11/12/2017 [facility] Temperature Oral (F) 98.1 F 11/12/2017 [facility] Systolic (mm Hg) 144 11/12/2017 [facility] Diastolic (mm Hg) 80 11/12/2017 [facility] Respitory Rate 18 11/12/2017 [facility] Heart Rate 53 11/12/2017 [facility] Weight 103 11/11/2017 [facility] Height 180.34 cm 11/09/2017 [facility] Weight 100 11/09/2017 [facility] BMI Calculated 30.75 11/09/2017 [facility] Height 180.34 cm 11/09/2017 [facility] Height 180.34 cm 11/08/2017 [facility] Weight 100 11/08/2017 [facility] BMI Calculated 30.75 11/08/2017 [facility] Systolic (mm Hg) 167 07/20/2016 [facility] Diastolic (mm Hg) 78 07/20/2016 [facility] Respitory Rate 15 07/20/2016 [facility] Systolic (mm Hg) 158 07/20/2016 [facility] Diastolic (mm Hg) 88 07/20/2016 [facility] Respitory Rate 13 07/20/2016 [facility] Systolic (mm Hg) 123 07/20/2016 [facility] Diastolic (mm Hg) 69 07/20/2016 [facility] Respitory Rate 13 07/20/2016 [facility] Heart Rate 55 07/19/2016 [facility] Temperature Oral (F) 97.7 F 07/19/2016 [facility] Height 180.34 cm 07/19/2016 [facility] Weight 91.955 07/19/2016 [facility] BMI Calculated 28.27 07/19/2016 [facility] Encounters Location Location Details Encounter Type Encounter Number Reason For Visit Attending Provider ADM Date DC Date Status Source [facility] Bedded Outpatient [id number] Michael Torre 07/20/2016 07/20/2016 [facility] Inpatient [id number] Sang Flores 11/08/2017 11/12/2017 [facility] Procedures Procedure Code Date Perfomer Comments Source CABG x 3 - Coronary artery bypass grafts x 3 [id number] [facility] Insertion of coronary artery stent [id number] [facility] Operation<sup>1</sup> [id number] lumbar surgery with hardware and 2 additional surgeries to have hardware removed. [facility]
--- OUTSIDE RECORDS SUMMARY | 2018-06-07 05:33 | XMS REPORT | Summary of Care ---
Author Author [facility] Organization [facility] Address Unknown Phone Unavailable Encounter LAURYN Gustafson(ISAI) [id number] Date(s): 11/08/17 - 11/12/17 [facility] [address] [place] [address]- Discharge Disposition: Home or Self Care Attending Physician: Sang Flores MD Admitting Physician: Sang Flores MD Vital Signs 1 2 3 Most recent to oldest [Reference Range]: 180.34 cm (11/08/17 10:37 PM) 180.34 cm (11/08/17 9:17 PM) 180.34 cm (11/08/17 5:56 PM) Height 100 kg (11/08/17 10:37 PM) Current Weight 97.8 DegF (11/12/17 7:39 AM) 97.7 DegF (11/12/17 4:00 AM) 98.1 DegF (11/12/17 12:00 AM) Temperature Oral [96.4-99.1 DegF] 123/74 mmHg (11/12/17 7:39 AM) 144/69 mmHg *HI* (11/12/17 4:00 AM) 144/80 mmHg *HI* (11/12/17 12:00 AM) Blood Pressure [90-140/60-90 mmHg] 18 BRMIN (11/12/17 7:39 AM) 18 BRMIN (11/12/17 4:00 AM) 18 BRMIN (11/12/17 12:00 AM) Respiratory Rate [14-20 BRMIN] 52 bpm *LOW* (11/12/17 7:39 AM) 55 bpm *LOW* (11/12/17 4:00 AM) 53 bpm *LOW* (11/12/17 12:00 AM) Peripheral Pulse Rate [60-100 bpm] 103 kg (11/11/17 9:02 AM) 100 kg (11/08/17 9:17 PM) 100 kg (11/08/17 5:56 PM) Weight 30.75 m2 (11/08/17 9:17 PM) 30.75 m2 (11/08/17 5:56 PM) Body Mass Index Problem List Condition Effective Dates Status Health Status Informant Frozen Active shoulder(Confirmed)1 CAD (coronary artery Active disease)(Confirmed) Occlusion of Active coronary artery stent(Confirmed) Stroke(Confirmed) Active Diabetes(Confirmed) Active SOBOE (shortness of Active breath on exertion)(Confirmed) Acid Active reflux(Confirmed) HTN Active (hypertension)(Confi rmed) Heart Resolved attack(Confirmed) S/P CABG x Active 3(Confirmed) Right sided Active weakness(Confirmed) Apnea, Resolved sleep(Confirmed) 1right Allergies, Adverse Reactions, Alerts Substance Reaction Severity Status NKDA Active Medications acetaminophen 650 mg, 2 tab, Route: PO, Drug form: TAB, Q4H, Dosing Weight 100, kg, PRN Pain 1 -3/Temp > 100.4 F, Start date: 11/08/17 19:53:00 CDT, Duration: 30 day, Stop date: 12/08/17 19:52:00 CDT Notes: Do not exceed 4 gm/day. (Same as: Tylenol) Start Date: 11/08/17 Stop Date: 11/12/17 Status: Discontinued acetaminophen 650 mg, Route: PO, Drug form: TAB, Q4H, Dosing Weight 100, kg, PRN Pain Score 1- 3, Start date: 11/10/17 15:10:00 CDT, Duration: 30 day, Stop date: 12/10/17 15:0 9:00 CDT Start Date: 11/10/17 Stop Date: 11/10/17 Status: Deleted acetaminophen-hydrocodone 325 mg-5 mg oral tablet 1 tab, Route: PO, Drug Form: TAB, Dosing Weight 100, kg, Q4H, PRN Pain Score 4-6 , Start date: 11/08/17 19:53:00 CDT, Duration: 30 day, Stop date: 12/08/17 19:52 :00 CDT Notes: (Same as: Cameron 325/5) Do not exceed 4gm/day of acetaminophen. Start Date: 11/08/17 Stop Date: 11/12/17 Status: Discontinued Al hydroxide/Mg hydroxide/simethicone 200 mg-200 mg-20 mg/5 mL oral suspension 30 mL, Route: PO, Drug Form: SUSP, Dosing Weight 100, kg, Q12H, PRN Indigestion, Start date: 11/10/17 15:10:00 CDT, Duration: 30 day, Stop date: 12/10/17 15:09: 00 CDT Notes: (aluminum hydroxide-magnesium hyd-simethicone [phone]/5ml 30 ml ud S ) Start Date: 11/10/17 Stop Date: 11/12/17 Status: Discontinued aspirin 324 mg, Route: PO, ONCE, Dosing Weight 91.955, kg, Priority: STAT, Start date: 0 11/08/17 17:58:00 CDT, Stop date: 11/08/17 17:58:00 CDT Start Date: 11/08/17 Stop Date: 11/08/17 Status: Completed aspirin 325 mg tablet 325 mg, 1 tab, Route: PO, Drug form: TAB, Bedtime, Dosing Weight 100, kg, Start date: 11/09/17 21:00:00 CDT, Duration: 30 day, Stop date: 12/08/17 21:00:00 CDT Notes: Take with food. Start Date: 11/09/17 Stop Date: 11/12/17 Status: Discontinued bumetanide 10 mg + Sodium Chloride 0.9% (titrate) 60 mL 60 mL, Rate: Infuse as directed, Dosing Weight 100, kg, Route: IV, Total Volume: 100 mL, Start Date: 11/10/17 15:11:00 CDT, Duration: 30 day, Stop date: 12/10/17 15:10:00 CDT, Replace Every: 24 hr Notes: (Same As: Bumex) Start Date: 11/10/17 Stop Date: 11/11/17 Status: Discontinued Bumex 1 mg, 1 tab, Route: PO, Drug form: TAB, BID, Dosing Weight 103, kg, Start date: 11/11/17 17:00:00 CDT, Duration: 30 day, Stop date: 12/11/17 9:00:00 CDT Notes: (Same As: Bumex) Start Date: 11/11/17 Stop Date: 11/12/17 Status: Discontinued Colace 100 mg oral capsule 100 mg, 1 cap, Route: PO, Drug form: CAP, BID, Dosing Weight 103, kg, Start date : 11/11/17 21:00:00 CDT, Duration: 30 day, Stop date: 12/11/17 17:00:00 CDT Notes: (Same as: Colace) (Do Not Crush) Start Date: 11/11/17 Stop Date: 11/12/17 Status: Discontinued Colace 100 mg oral capsule 100 mg, 1 cap, Route: PO, Drug form: CAP, Daily, Dosing Weight 103, kg, PRN Cons tipation, Start date: 11/11/17 19:27:00 CDT, Duration: 30 day, Stop date: 19:26:00 CDT Notes: (Same as: Colace) (Do Not Crush) Start Date: 11/11/17 Stop Date: 11/12/17 Status: Discontinued Dextrose 50% Syringe 25 gm, 50 mL, Route: IVP, Drug Form: INJ, Dosing Weight 100, kg, PRN, PRN Blood Glucose Results, Start date: 11/08/17 21:41:00 CDT, Duration: 30 day, Stop date: 12/08/17 21:40:00 CDT Start Date: 11/08/17 Stop Date: 11/12/17 Status: Discontinued Dextrose 50% Syringe 12.5 gm, 25 mL, Route: IVP, Drug Form: INJ, Dosing Weight 100, kg, PRN, PRN Bloo d Glucose Results, Start date: 11/08/17 21:41:00 CDT, Duration: 30 day, Stop corinne e: 12/08/17 21:40:00 CDT Start Date: 11/08/17 Stop Date: 11/12/17 Status: Discontinued enoxaparin 100 mg, 1 mL, Route: SUB-Q, Drug form: INJ, [id number], Dosing Weight 100, kg, Grace ority: STAT, Start date: 11/09/17 7:14:00 CDT, Duration: 30 day, Stop date: 07/23 20:00:00 CDT Notes: Nurse to ensure documentation of patient education per anticoagulation po licy.(Same as: Lovenox) Start Date: 11/09/17 Stop Date: 11/10/17 Status: Discontinued furosemide 40 mg oral tablet 40 mg=1 tab, PO, Daily, # 30 tab, 0 Refill(s), Pharmacy: [facility]/pharmacy #[id number] Start Date: 11/12/17 Stop Date: 12/12/17 Status: Ordered gabapentin 600 mg oral tablet 600 mg, 2 cap, Route: PO, Drug form: CAP, Q8H, Dosing Weight 100, kg, Start date : 11/09/17 0:00:00 CDT, Duration: 30 day, Stop date: 12/08/17 16:00:00 CDT Notes: (Same as: Neurontin) Start Date: 11/09/17 Stop Date: 11/12/17 Status: Discontinued gabapentin 600 mg oral tablet 600 mg=1 tab, PO, TID, 0 Refill(s) Start Date: 11/08/17 Status: Ordered glimepiride 4 mg, PO, Daily, 0 Refill(s) Start Date: 11/09/17 Status: Ordered glucagon 1 mg, Route: IM, Drug form: PDR/INJ, PRN, Dosing Weight 100, kg, PRN Blood Gluco se Results, Start date: 11/08/17 21:41:00 CDT, Duration: 30 day, Stop date: 07/23 21:40:00 CDT Start Date: 11/08/17 Stop Date: 11/12/17 Status: Discontinued Heparin 30 unit/kg Bolus (Heparin Dosing Weight) Route: IVP, PRN, 2,600 unit, 2.6 mL, Drug form: INJ, PRN, Heparin Protocol, Star t date: 11/09/17 0:06:00 CDT Stop date: 12/09/17 0:05:00 CDT, 30 day Start Date: 11/09/17 Stop Date: 11/09/17 Status: Discontinued Heparin 60 unit/kg Bolus (Heparin Dosing Weight) Route: IVP, PRN, 5,100 unit, 5.1 mL, Drug form: INJ, PRN, Heparin Protocol, Star t date: 11/09/17 0:06:00 CDT Stop date: 12/09/17 0:05:00 CDT, 30 day Start Date: 11/09/17 Stop Date: 11/09/17 Status: Discontinued heparin additive 25,000 unit [11.7 unit/kg/hr] + Premix Diluent Dextrose 5% 500 mL 500 mL, Rate: 19.93 ml/hr, Infuse over: 25.1 hr, Route: IV, Dosing Weight 85.18 kg, Total Volume: 500 mL, Start date: 11/09/17 0:06:00 CDT, Stop date: 12/09/17 0:05:00 CDT, 2.08, m2 Start Date: 11/09/17 Stop Date: 11/09/17 Status: Discontinued insulin lispro 1 unit, 0.01 mL, Route: SUB-Q, Drug form: SOLN, Bedtime, Dosing Weight 100, kg, PRN Blood Glucose Results, Start date: 11/08/17 21:41:00 CDT, Duration: 30 day, Stop date: 12/08/17 21:40:00 CDT Notes: (Same as: Humalog ) Roll in palms of hands gently; Do not shake `vigorou sly. "Single Patient Use Only " WASTE: F/P - Black; E - [facility] [address] able for 28 days at room temperature.Expires in days from Da te Start Date: 11/08/17 Stop Date: 11/12/17 Status: Discontinued insulin lispro 2 unit, 0.02 mL, Route: SUB-Q, Drug form: SOLN, Bedtime, Dosing Weight 100, kg, PRN Blood Glucose Results, Start date: 11/08/17 21:41:00 CDT, Duration: 30 day, Stop date: 12/08/17 21:40:00 CDT Notes: (Same as: Humalog ) Roll in palms of hands gently; Do not shake `vigorou sly. "Single Patient Use Only " WASTE: F/P - Black; E - [facility] [address] able for 28 days at room temperature.Expires in days from Da te Start Date: 11/08/17 Stop Date: 11/12/17 Status: Discontinued insulin lispro 4 unit, 0.04 mL, Route: SUB-Q, Drug form: SOLN, Bedtime, Dosing Weight 100, kg, PRN Blood Glucose Results, Start date: 11/08/17 21:41:00 CDT, Duration: 30 day, Stop date: 12/08/17 21:40:00 CDT Notes: (Same as: Humalog ) Roll in palms of hands gently; Do not shake `vigorou sly. "Single Patient Use Only " WASTE: F/P - Black; E - [facility] [address] able for 28 days at room temperature.Expires in days from Da te Start Date: 11/08/17 Stop Date: 11/12/17 Status: Discontinued insulin lispro 3 unit, 0.03 mL, Route: SUB-Q, Drug form: SOLN, Bedtime, Dosing Weight 100, kg, PRN Blood Glucose Results, Start date: 11/08/17 21:41:00 CDT, Duration: 30 day, Stop date: 12/08/17 21:40:00 CDT Notes: (Same as: Humalog ) Roll in palms of hands gently; Do not shake `vigorou sly. "Single Patient Use Only " WASTE: F/P - Black; E - [facility] [address] able for 28 days at room temperature.Expires in days from Da te Start Date: 11/08/17 Stop Date: 11/12/17 Status: Discontinued insulin lispro 10 unit, 0.1 mL, Route: SUB-Q, Drug form: SOLN, TID-Before Meals, Dosing Weight 100, kg, PRN Blood Glucose Results, Start date: 11/08/17 21:41:00 CDT, Duration: 30 day, Stop date: 12/08/17 21:40:00 CDT Notes: (Same as: Humalog ) Roll in palms of hands gently; Do not shake `vigorou sly. "Single Patient Use Only " WASTE: F/P - Black; E - [facility] [address] able for 28 days at room temperature.Expires in days from Da te Start Date: 11/08/17 Stop Date: 11/12/17 Status: Discontinued insulin lispro 8 unit, 0.08 mL, Route: SUB-Q, Drug form: SOLN, TID-Before Meals, Dosing Weight 100, kg, PRN Blood Glucose Results, Start date: 11/08/17 21:41:00 CDT, Duration: 30 day, Stop date: 12/08/17 21:40:00 CDT Notes: (Same as: Humalog ) Roll in palms of hands gently; Do not shake `vigorou sly. "Single Patient Use Only " WASTE: F/P - Black; E - [facility] [address] able for 28 days at room temperature.Expires in days from Da te Start Date: 11/08/17 Stop Date: 11/12/17 Status: Discontinued insulin lispro 4 unit, 0.04 mL, Route: SUB-Q, Drug form: SOLN, TID-Before Meals, Dosing Weight 100, kg, PRN Blood Glucose Results, Start date: 11/08/17 21:41:00 CDT, Duration: 30 day, Stop date: 12/08/17 21:40:00 CDT Notes: (Same as: Humalog ) Roll in palms of hands gently; Do not shake `vigorou sly. "Single Patient Use Only " WASTE: F/P - Black; E - [facility] [address] able for 28 days at room temperature.Expires in days from Da te Start Date: 11/08/17 Stop Date: 11/12/17 Status: Discontinued insulin lispro 6 unit, 0.06 mL, Route: SUB-Q, Drug form: SOLN, TID-Before Meals, Dosing Weight 100, kg, PRN Blood Glucose Results, Start date: 11/08/17 21:41:00 CDT, Duration: 30 day, Stop date: 12/08/17 21:40:00 CDT Notes: (Same as: Humalog ) Roll in palms of hands gently; Do not shake `vigorou sly. "Single Patient Use Only " WASTE: F/P - Black; E - [facility] [address] able for 28 days at room temperature.Expires in days from Da te Start Date: 11/08/17 Stop Date: 11/12/17 Status: Discontinued insulin lispro 2 unit, 0.02 mL, Route: SUB-Q, Drug form: SOLN, TID-Before Meals, Dosing Weight 100, kg, PRN Blood Glucose Results, Start date: 11/08/17 21:41:00 CDT, Duration: 30 day, Stop date: 12/08/17 21:40:00 CDT Notes: (Same as: Humalog ) Roll in palms of hands gently; Do not shake `vigorou sly. "Single Patient Use Only " WASTE: F/P - Black; E - [facility] [address] able for 28 days at room temperature.Expires in days from Da te Start Date: 11/08/17 Stop Date: 11/12/17 Status: Discontinued Januvia 50 mg, 2 tab, Route: PO, Drug form: TAB, Bedtime, Dosing Weight 100, kg, Start d ate: 11/09/17 21:00:00 CDT, Duration: 30 day, Stop date: 12/08/17 21:00:00 CDT Notes: Same as Januvia Start Date: 11/09/17 Stop Date: 11/12/17 Status: Discontinued Klor-Con M20 oral tablet, extended release 20 mEq=1 tab, PO, Daily, # 30 tab, 0 Refill(s), Pharmacy: [facility]/pharmacy #[id number] Start Date: 11/12/17 Stop Date: 12/12/17 Status: Ordered lisinopril 5 mg, Route: PO, Drug form: TAB, Bedtime, Dosing Weight 100, kg, Start date: 09/22 21:00:00 CDT, Duration: 30 day, Stop date: 12/08/17 21:00:00 CDT Start Date: 11/09/17 Stop Date: 11/08/17 Status: Canceled lisinopril 10 mg, 2 tab, Route: PO, Drug form: TAB, Daily, Dosing Weight 100, kg, Start corinne e: 11/09/17 9:00:00 CDT, Duration: 30 day, Stop date: 12/08/17 9:00:00 CDT Notes: (Same as: PrinivBurton quezadastril) Start Date: 11/09/17 Stop Date: 11/10/17 Status: Discontinued lisinopril 10 mg oral tablet 10 mg=1 tab, PO, Daily, # 30 tab, 0 Refill(s) Start Date: 11/08/17 Stop Date: 11/12/17 Status: Discontinued magnesium sulfate 2 gm in Water 50 ml 2 gm, 50 mL, Route: IVPB, Drug form: INJ, ONCE, Dosing Weight 103, kg, Start corinne e: 11/11/17 17:08:00 CDT, Stop date: 11/11/17 17:08:00 CDT Notes: WASTE: F/P - Sink; E - [facility] Trash [facility] Start Date: 11/11/17 Stop Date: 11/11/17 Status: Completed metFORMIN 1000 mg oral tablet 1,000 mg=1 tab, PO, BID-Meals, # 30 tab, 0 Refill(s) Start Date: 11/08/17 Stop Date: 11/12/17 Status: Discontinued metoprolol extended release 25 mg, 1 tab, Route: PO, Drug form: ERTAB, Daily, Start date: 11/09/17 9:00:00 C DT, Duration: 30 day, Stop date: 12/08/17 9:00:00 CDT Notes: (Same as: Toprol XL) Do Not Crush Start Date: 11/09/17 Stop Date: 11/12/17 Status: Discontinued morphine Sulfate 6 mg, 3 mL, Route: PO, Drug form: SOLN, Q4H, Dosing Weight 100, kg, PRN Pain Sco re 7-10, Start date: 11/08/17 19:53:00 CDT, Stop date: 12/08/17 19:52:00 CDT Notes: (Same as:MORPhine Sulfate) Start Date: 11/08/17 Stop Date: 11/12/17 Status: Discontinued morphine Sulfate 2 mg, Route: IVP, ONCE, Dosing Weight 100, kg, Priority: STAT, Start date: 11/08 18:01:00 CDT, Stop date: 11/08/17 18:01:00 CDT Start Date: 11/08/17 Stop Date: 11/08/17 Status: Completed nitroglycerin 100 mg in D5W 250 mL (Titrate.) IV 100 mg 100 mg, 250 mL, Rate: 5 mcg/min, Start Dose: 10 microgram/min, Titration: do not titrate, Goal(s): MAP >60, Max Dose: 200 mcg/min, Route: IV, Dosing Weight 100 kg, Total Volume: 250, Start date: 11/10/17 15:11:00 CDT, Duration: 30 day, Stop date: ... Notes: (Same as:Tridil) Final conc=0.4 mg/ml. Premix bottle. Start Date: 11/10/17 Stop Date: 11/11/17 Status: Discontinued nitroglycerin 2% ointment 0.5 inch, Route: TOP, Drug Form: OINT, Dosing Weight 100, kg, ONCE, STAT, Start date: 11/08/17 18:39:00 CDT, Stop date: 11/08/17 18:39:00 CDT Start Date: 11/08/17 Stop Date: 11/08/17 Status: Completed nitroglycerin 50 mg in D5W 250 mL (Titrate.) IV 100 mg 100 mg, 250 mL, Rate: Titrate, Start Dose: 5 microgram/min, Titration: DNT, Goal (s): Chest pain and SBP between 100 - 150 mmHg, Max Dose: 5 mcg, Route: IV, Dosi ng Weight 100 kg, Total Volume: 250, Start date: 11/09/17 7:13:00 CDT, Duration: 30 day, St... Notes: (Same as:Tridil) Final conc=0.4 mg/ml. Premix bottle. Start Date: 11/09/17 Stop Date: 11/10/17 Status: Discontinued nitroglycerin SL Tab 0.4 mg, 1 tab, Route: SL, Drug form: TAB, Q5Min, Dosing Weight 100, kg, PRN Ches t Pain, Start date: 11/08/17 19:44:00 CDT, Duration: 3 doses or times, Stop date : Limited # of times Notes: (Same as:Nitroquick, Nitrostat)"Do Not Crush" Sublingual tablet Start Date: 11/08/17 Stop Date: 11/12/17 Status: Discontinued ondansetron 4 mg, 2 mL, Route: IVP, Drug form: INJ, Q6H, Dosing Weight 100, kg, PRN Nausea & Vomiting, Start date: 11/08/17 19:53:00 CDT, Duration: 30 day, Stop date: 12/08 19:52:00 CDT Notes: (Same as: Leobardo) MEDICATION WASTE Product Size: 4 mgProduct Was katerina: ___ mg Start Date: 11/08/17 Stop Date: 11/12/17 Status: Discontinued Plavix 75 mg, 1 tab, Route: PO, Drug form: TAB, Bedtime, Dosing Weight 100, kg, Start d ate: 11/08/17 21:55:00 CDT, Duration: 30 day, Stop date: 12/08/17 21:00:00 CDT Notes: (Same As: Plavix) Start Date: 11/08/17 Stop Date: 11/12/17 Status: Discontinued potassium chloride 40 mEq, 2 tab, Route: PO, Drug form: ERTAB, ONCE, Dosing Weight 103, kg, Start d ate: 11/11/17 17:08:00 CDT, Stop date: 11/11/17 17:08:00 CDT Notes: (Same as: K-Dur 20)"Do Not Crush"For patients unable to swallow tablet, d issolve in one half glass of water. Allow about 2 minutes for the tablets to dis integrate. Stir before giving to prepare slurry and administer.Please exclude Pa tients with feeding tube less than 14 [place] (Dobhoff, J-tube etc) and pediat dominic and patients. With food and full glass of water Start Date: 11/11/17 Stop Date: 11/11/17 Status: Completed rosuvastatin 10 mg, 2 tab, Route: PO, Drug form: TAB, Bedtime, Dosing Weight 100, kg, Start d ate: 11/08/17 21:56:00 CDT, Duration: 30 day, Stop date: 12/08/17 21:00:00 CDT Notes: Same as Jorgeor Start Date: 11/08/17 Stop Date: 11/12/17 Status: Discontinued Saline Flush 0.9% 10 mL, Route: IVP, Drug Form: INJ, Dosing Weight 91.955, kg, PRN, PRN Line Flush , Start date: 11/08/17 17:58:00 CDT, Duration: 30 day, Stop date: 12/08/17 17:57 :00 CDT Notes: (Same as: BD Posiflush) Start Date: 11/08/17 Stop Date: 11/08/17 Status: Discontinued Saline Flush 0.9% 10 ml, Route: IVP, Drug Form: INJ, Dosing Weight 100, kg, PRN, PRN Line Flush, S tart date: 11/08/17 19:44:00 CDT, Duration: 30 day, Stop date: 12/08/17 19:43:00 CDT Notes: (Same as: BD Posiflush) Start Date: 11/08/17 Stop Date: 11/12/17 Status: Discontinued Saline Flush 0.9% 10 ml, Route: IVP, Drug Form: INJ, Dosing Weight 100, kg, Q12H, Start date: 08/23 21:00:00 CDT, Duration: 30 day, Stop date: 12/08/17 9:00:00 CDT Notes: (Same as: BD Posiflush) Start Date: 11/08/17 Stop Date: 11/12/17 Status: Discontinued Results ELECTROLYTES 1 2 3 Most recent to oldest [Reference Range]: 135 mEq/L (11/12/17 5:12 AM) 134 mEq/L *LOW* (11/11/17 3:50 PM) 137 mEq/L (11/10/17 10:53 AM) Sodium Lvl [135-145 mEq/L] 4.2 mEq/L (11/12/17 5:12 AM) 3.9 mEq/L (11/11/17 3:50 PM) 4.2 mEq/L (11/10/17 10:53 AM) Potassium Lvl [3.5-5.1 mEq/L] 102 mEq/L (11/12/17 5:12 AM) 98 mEq/L (11/11/17 3:50 PM) 104 mEq/L (11/10/17 10:53 AM) Chloride Lvl [95-109 mEq/L] 25 mEq/L (11/12/17 5:12 AM) 25 mEq/L (11/11/17 3:50 PM) 25 mEq/L (11/10/17 10:53 AM) CO2 [24-32 mEq/L] 12.2 mEq/L (11/12/17 5:12 AM) 14.9 mEq/L (11/11/17 3:50 PM) 12.2 mEq/L (11/10/17 10:53 AM) AGAP [10.0-20.0 mEq/L] CHEM PANEL 1 2 3 Most recent to oldest [Reference Range]: 1.01 mg/dL (11/12/17 5:12 AM) 1.06 mg/dL (11/11/17 3:50 PM) 0.87 mg/dL (11/10/17 10:53 AM) Creatinine Lvl [0.50-1.40 mg/dL] 80 mL/min/1.73m2 1 *NA* (11/12/17 5:12 AM) 76 mL/min/1.73m2 2 *NA* (11/11/17 3:50 PM) 94 mL/min/1.73m2 3 *NA* (11/10/17 10:53 AM) eGFR 23 mg/dL *HI* (11/12/17 5:12 AM) 21 mg/dL (11/11/17 3:50 PM) 16 mg/dL (11/10/17 10:53 AM) BUN [7-22 mg/dL] 21 (11/08/17 6:45 PM) B/C Ratio [6-25] 173 mg/dL *HI* (11/12/17 5:12 AM) 207 mg/dL *HI* (11/11/17 3:50 PM) 124 mg/dL *HI* (11/10/17 10:53 AM) Glucose Lvl [70-99 mg/dL] 7.1 g/dL (11/08/17 6:45 PM) Total Protein [6.4-8.4 g/dL] 3.6 g/dL (11/08/17 6:45 PM) Albumin Lvl [3.5-5.0 g/dL] 3.5 g/dL (11/08/17 6:45 PM) Globulin [2.7-4.2 g/dL] 1.0 (11/08/17 6:45 PM) A/G Ratio [0.7-1.6] 9.1 mg/dL (11/12/17 5:12 AM) 8.8 mg/dL (11/11/17 3:50 PM) 8.6 mg/dL (11/10/17 10:53 AM) Calcium Lvl [8.5-10.5 mg/dL] 1.8 mg/dL (11/11/17 3:50 PM) Magnesium Lvl [1.8-2.4 mg/dL] 23 unit/L (11/08/17 6:45 PM) ALT [0-65 unit/L] 14 unit/L (11/08/17 6:45 PM) AST [0-37 unit/L] 63 unit/L (11/08/17 6:45 PM) Alk Phos [39-136 unit/L] 0.4 mg/dL (11/08/17 6:45 PM) Bili Total [0.2-1.3 mg/dL] 1Result Comment: The eGFR is calculated using the [...] from the National Kid[employer] Disease Education Program ( NKDEP) which additionally recommends that when the eGFR is used in patients with extremes of body mass index for purposes of drug dosing, the eGFR should be mul tiplied by the estimated BMI. 2Result Comment: The eGFR is calculated using the [...] from the National Kid[employer] Education Program ( NKDEP) which additionally recommends that when the eGFR is used in patients with extremes of body mass index for purposes of drug dosing, the eGFR should be mul tiplied by the estimated BMI. 3Result Comment: The eGFR is calculated using the [...] from the National Kid[employer] Disease Education Program ( NKDEP) which additionally recommends that when the eGFR is used in patients with extremes of body mass index for purposes of drug dosing, the eGFR should be mul tiplied by the estimated BMI. CARDIAC ENZYMES 1 2 3 Most recent to oldest [Reference Range]: 159 unit/L (11/09/17 3:40 AM) 165 unit/L (11/08/17 11:15 PM) 178 unit/L (11/08/17 6:45 PM) Total CK [12-191 unit/L] 6.3 ng/mL *HI* (11/09/17 3:40 AM) 5.5 ng/mL *HI* (11/08/17 11:15 PM) 4.6 ng/mL *HI* (11/08/17 6:45 PM) CK MB [0.5-3.6 ng/mL] 2.6 *HI* (11/08/17 6:45 PM) CK MB Index [0.0-2.5] 0.43 ng/mL *HI* (11/09/17 3:40 AM) 0.42 ng/mL *HI* (11/08/17 11:15 PM) 0.05 ng/mL (11/08/17 6:45 PM) Troponin-I [0.00-0.40 ng/mL] 134 pg/mL *HI* (11/08/17 6:45 PM) BNP [<=100 pg/mL] LIPIDS 1 2 3 Most recent to oldest [Reference Range]: 2.95 *LOW* (11/09/17 3:40 AM) CHD Risk [4.00-7.30] 109 mg/dL (11/09/17 3:40 AM) Chol [<=199 mg/dL] 92 mg/dL (11/09/17 3:40 AM) Trig [<=149 mg/dL] 37 mg/dL *LOW* (11/09/17 3:40 AM) HDL [>=61 mg/dL] 54 mg/dL (11/09/17 3:40 AM) LDL (Calculated) [<=99 mg/dL] 18 *NA* (11/09/17 3:40 AM) VLDL HEMATOLOGY 1 2 3 Most recent to oldest [Reference Range]: 6.5 K/CMM (11/12/17 5:12 AM) 7.7 K/CMM (11/10/17 10:53 AM) 7.5 K/CMM (11/09/17 3:40 AM) WBC [3.7-10.4 K/CMM] 4.46 M/CMM *LOW* (11/12/17 5:12 AM) 4.21 M/CMM *LOW* (11/10/17 10:53 AM) 4.15 M/CMM *LOW* (11/09/17 3:40 AM) RBC [4.70-6.10 M/CMM] 13.5 g/dL *LOW* (11/12/17 5:12 AM) 12.6 g/dL *LOW* (11/10/17 10:53 AM) 12.4 g/dL *LOW* (11/09/17 3:40 AM) Hgb [14.0-18.0 g/dL] 39.3 % *LOW* (11/12/17 5:12 AM) 37.3 % *LOW* (11/10/17 10:53 AM) 36.8 % *LOW* (11/09/17 3:40 AM) Hct [42.0-54.0 %] 88.2 fL (11/12/17 5:12 AM) 88.4 fL (11/10/17 10:53 AM) 88.5 fL (11/09/17 3:40 AM) MCV [80.0-94.0 fL] 30.2 pg (11/12/17 5:12 AM) 29.8 pg (11/10/17 10:53 AM) 29.9 pg (11/09/17 3:40 AM) MCH [27.0-31.0 pg] 34.2 g/dL (11/12/17 5:12 AM) 33.7 g/dL (11/10/17 10:53 AM) 33.8 g/dL (11/09/17 3:40 AM) MCHC [32.0-36.0 g/dL] 13.7 % (11/12/17 5:12 AM) 13.7 % (11/10/17 10:53 AM) 13.6 % (11/09/17 3:40 AM) RDW [11.5-14.5 %] 8.0 fL (11/12/17 5:12 AM) 8.2 fL (11/10/17 10:53 AM) 7.8 fL (11/09/17 3:40 AM) MPV [7.4-10.4 fL] 157 K/CMM (11/12/17 5:12 AM) 160 K/CMM (11/10/17 10:53 AM) 146 K/CMM (11/09/17 3:40 AM) Platelet [133-450 K/CMM] 63.9 % (11/12/17 5:12 AM) 63.1 % (11/09/17 3:40 AM) 72.7 % (11/08/17 6:45 PM) Segs [45.0-75.0 %] 21.9 % (11/12/17 5:12 AM) 23.4 % (11/09/17 3:40 AM) 16.2 % *LOW* (11/08/17 6:45 PM) Lymphocytes [20.0-40.0 %] 8.4 % (11/12/17 5:12 AM) 8.5 % (11/09/17 3:40 AM) 7.2 % (11/08/17 6:45 PM) Monocytes [2.0-12.0 %] 5.0 % *HI* (11/12/17 5:12 AM) 4.4 % *HI* (11/09/17 3:40 AM) 3.3 % (11/08/17 6:45 PM) Eosinophils [0.0-4.0 %] 0.8 % (11/12/17 5:12 AM) 0.6 % (11/09/17 3:40 AM) 0.6 % (11/08/17 6:45 PM) Basophils [0.0-1.0 %] 4.2 K/CMM (11/12/17 5:12 AM) 4.7 K/CMM (11/09/17 3:40 AM) 6.2 K/CMM (11/08/17 6:45 PM) Segs-Bands # [1.5-8.1 K/CMM] 1.4 K/CMM (11/12/17 5:12 AM) 1.8 K/CMM (11/09/17 3:40 AM) 1.4 K/CMM (11/08/17 6:45 PM) Lymphocytes # [1.0-5.5 K/CMM] 0.5 K/CMM (11/12/17 5:12 AM) 0.6 K/CMM (11/09/17 3:40 AM) 0.6 K/CMM (11/08/17 6:45 PM) Monocytes # [0.0-0.8 K/CMM] 0.3 K/CMM (11/12/17 5:12 AM) 0.3 K/CMM (11/09/17 3:40 AM) 0.3 K/CMM (11/08/17 6:45 PM) Eosinophils # [0.0-0.5 K/CMM] 0.1 K/CMM (11/12/17 5:12 AM) 0.1 K/CMM (11/08/17 6:45 PM) Basophils # [0.0-0.2 K/CMM] 13.7 seconds (11/09/17 12:51 AM) PT [12.0-14.7 seconds] 1.05 (11/09/17 12:51 AM) INR [0.85-1.17] 29.7 seconds (11/09/17 12:51 AM) PTT [22.9-35.8 seconds] Immunizations Given and Recorded Vaccine Date Status Refusal Reason pneumococcal 23-valent vaccine 11/12/17 Given Procedures Procedure Date Related Diagnosis Body Site Status CABG x 3 - Coronary artery bypass grafts x 3 Completed Insertion of coronary artery stent Completed Operation1 Completed 1lumbar surgery with hardware and 2 additional surgeries to have hardware removed. Social History Social History Type Response Substance Abuse Use: None. Alcohol Past1 Smoking Status Former smoker; Exposure to Tobacco Smoke None; Cigarette Smoking Last 365 Days No; Reg Smoking Cessation Counseling No2 entered on: 11/08/17 1quit 2013 2quit 2013 Assessment and Plan Extracted from: Title: Clinical Document Author: Gilbert Orellana MD Date: 11/12/17 Discharge Summary: Discharge Diagnoses: Non-ST segment elevation myocardial infarction Chest pain History of aortocoronary bypass surgery, with patent mammary artery to LAD only Small diffuse [place] vessel disease Hypertension Diabetes Prior stroke Discharge Medications: See Medication Reconciliation Discharge Activity: As Tolerated Discharge Diet: Low fat, Heart Healthy Diet Discharge Follow-up: As Discussed with patient (PCP in 1-2 weeks) HPI and Hospital Course: Patient was admitted to [facility] with unstable angina and evidence of an acute coronary syndrome He underwent prompt cardiac catheterization which revealed patent mammary artery to LAD. Patient was also found to have severe diffuse disease of his [place] coronaries. EF was found to be 45%. Left ventricular end-diastolic filling pressures were abnormal and patient was diuresed. He remained asymptomatic throughout the remainder of his hospital course. Renal function was stable. Patient was euvolemic on discharge and was placed on low-dose diuretic at 40 mg of Lasix a day along with potassium. He was continued on dual antiplatelet therapy. It was strongly recommended the patient that he obtain cardiology evaluation as an outpatient. Patient unfortunately has [employer] insurance and we are not able to follow the patient as an outpatient. I advised the patient strongly to follow-up with his primary care physician in the very near future for further management.He was discharged home in good condition with appropriate outpatient follow-up to be established in the a.m. Extracted from: Title: Progress Note * Author: Chiara Armenta MD Date: 11/11/17 Impression and Plan --NSTEMI -Management per primary team -ASA plavix --Diabetes mellitus, type II, non insulin-dependent -Controlled., goal 140-180 -Hold metformin cont Januvia, medium dose sliding scale -We will continue to check POC glucose q. before meals at bedtime 3 times daily and titrate as needed -Carbohydrate diet --Hypertension, benign essential -Currently controlled -We will continue home medications will titrate as needed --H/o CVA We will continue to follow with you, labs in am Patient seen by Chiara Armenta MD Internal Medicine Hospitalist
--- OUTSIDE RECORDS SUMMARY | 2018-06-07 05:33 | XMS REPORT | Summary of Care ---
Author Author [facility] Organization [facility] Address Unknown Phone Unavailable Encounter LAURYN Gustafson(ISAI) [id number] Date(s): 07/20/16 - 07/20/16 [facility] [address] [place] [address]- [phone] Discharge Disposition: Home or Self Care Attending Physician: Michael Torre MD Referring Physician: Michael Torre MD Vital Signs 1 2 3 Most recent to oldest [Reference Range]: 180.34 cm (07/19/16 7:47 AM) Height 97.7 DegF (07/19/16 8:05 AM) Temperature Oral [96.4-99.1 DegF] 167/78 mmHg *HI* (07/20/16 12:15 PM) 158/88 mmHg *HI* (07/20/16 12:02 PM) 123/69 mmHg (07/20/16 11:47 AM) Blood Pressure [90-140/60-90 mmHg] 15 BRMIN (07/20/16 12:15 PM) 13 BRMIN *LOW* (07/20/16 12:02 PM) 13 BRMIN *LOW* (07/20/16 11:47 AM) Respiratory Rate [14-20 BRMIN] 55 bpm *LOW* (07/19/16 8:05 AM) Peripheral Pulse Rate [60-100 bpm] 91.955 kg (07/19/16 7:47 AM) Weight 28.27 m2 (07/19/16 7:47 AM) Body Mass Index Problem List Condition Effective [...] Substance Reaction Severity Status NKDA Active Medications aspirin 325 mg tablet 325 mg=1 tab, PO, Bedtime, # 90 tab, 0 Refill(s) Start Date: 07/19/16 Status: Ordered Januvia 50 mg oral tablet 50 mg=1 tab, PO, Bedtime, # 90 tab, 1 Refill(s) Start Date: 07/19/16 Stop Date: 10/17/16 Status: Ordered lisinopril 5 mg oral tablet 5 mg=1 tab, PO, Bedtime, # 30 tab, 0 Refill(s) Start Date: 07/19/16 Status: Ordered metoprolol 25 mg oral tablet, extended release 25 mg=1 tab, PO, Bedtime, # 30 tab, 0 Refill(s) Start Date: 07/19/16 Status: Ordered Plavix 75 mg oral tablet 75 mg=1 tab, PO, Bedtime, # 30 tab, 0 Refill(s) Start Date: 07/19/16 Status: Ordered rosuvastatin 10 mg oral tablet 10 mg=1 tab, PO, Bedtime, # 30 tab, 0 Refill(s) Start Date: 07/19/16 Status: Ordered Sodium Chloride 0.9% IV 1000 mL 1,000 mL, Rate: 25 ml/hr, Infuse over: 40 hr, Route: IV, Dosing Weight 91.955 kg , Total Volume: 1,000, Start date: 07/20/16 10:00:00 CDT, Duration: 30 day, Stop date: 08/19/16 9:59:00 CDT Start Date: 07/20/16 Stop Date: 07/20/16 Status: Discontinued Xigduo XR 10 mg-1000 mg oral tablet, extended release 1 tab, PO, Bedtime, 0 Refill(s) Start Date: 07/19/16 Status: Ordered Results ELECTROLYTES Most recent to 1 oldest [Reference Range]: Sodium Lvl [135-145 137 mEq/L mEq/L] (07/19/16 11:26 AM) Potassium Lvl 4.7 mEq/L [3.5-5.1 mEq/L] (07/19/16 11:26 AM) Chloride Lvl [95-109 99 mEq/L mEq/L] (07/19/16 11:26 AM) CO2 [24-32 mEq/L] 31 mEq/L (07/19/16:26 AM) AGAP [10.0-20.0 11.7 mEq/L mEq/L] (07/19/16 11:26 AM) CHEM PANEL Most recent to 1 oldest [Reference Range]: Creatinine Lvl 0.81 mg/dL [0.50-1.40 mg/dL] (07/19/16:26 AM) eGFR 98 mL/min/1.73m2 1 *NA* (07/19/16: AM) BUN [7-22 mg/dL] 20 mg/dL (07/19/16: AM) Glucose Lvl [70-99 111 mg/dL mg/dL] *HI* (07/19/16: AM) Calcium Lvl 9.5 mg/dL [8.5-10.5 mg/dL] (07/19/16 11:26 AM) 1Result Comment: The eGFR is calculated using [...] be mul tiplied by the estimated BMI. Immunizations No data available for this section Procedures Procedure Date Related Diagnosis Body Site CABG x 3 - Coronary artery bypass grafts x 3 Insertion of coronary artery stent Operation1 1lumbar surgery with hardware and 2 additional surgeries to have hardware removed. Social History Social History Type Response Alcohol Past1 Smoking Status Former smoker; Exposure to Tobacco Smoke None; Cigarette Smoking Last 365 Days No; Reg Smoking Cessation Counseling No2 1quit 2013 2quit 2013 Assessment and Plan No data available for this section
--- OUTSIDE RECORDS SUMMARY | 2018-06-07 05:33 | XMS REPORT ---
Author Author [facility] Address Unknown Phone Unavailable Care Team Providers Care Sports Administrator Name Role Phone QUINN PARDO Unavailable Unavailable Payers Payer Name Policy Type Policy Number Effective Date Expiration Date Problems This patient has no known problems. Allergies, Adverse Reactions, Alerts This patient has no known allergies or adverse reactions. Medications This patient has no known medications. Results Test Description Test Time Test Comments Text Results Atomic Results Result Comments CHEST 2 VIEWS 2018-06-05 17:03:00 [place] [address] Patient Name: ANTOINETTE ANTOINE MR #: [id number] : 1955 Age/Sex: 62/M Req #: [id number] Adm Physician: Ordered by: QUINN PARDO MD Report #: [id number] Location: OR Room/Bed: Procedure: [id number] DX/CHEST 2 VIEWS Exam Date: Exam Time: REPORT STATUS: Signed EXAMINATION: CHEST 2 VIEWS INDICATION: Pre-operative radiographs, lumbar spine surgery. COMPARISON: None FINDINGS: TUBES and LINES: None. LUNGS: Lungs are well inflated. Lungs are clear. There is no evidence of pneumonia or pulmonary edema. PLEURA: No pleural effusion or pneumothorax. HEART AND MEDIASTINUM: The cardiomediastinal silhouette is unremarkable. Status post CABG. BONES AND SOFT TISSUES: No acute radio graphic abnormality. Status post median sternotomy. UPPER ABDOMEN: No free air under the diaphragm. IMPRESSION: No acute radiographic abnormality. Signed by: Dr. Frank Jamil MD on 06/05/2018 5:05 PM Dictated By: FRANK JAMIL MD 04 Transcribed By: TARIQ on 06/05/181704 COPY TO: QUINN PARDO MD
[2018-06-07] MEDS ORDERED: CEFAZOLIN SOD 2 GM/D5W 50ML 50 ML IV ONE (05:55)
[2018-06-07] MEDS ORDERED: BACITRACIN 50,000 UNIT VIAL ONE (06:49)
[2018-06-07] MEDS ORDERED: GELATIN SPONGE 12-7MM ONE (06:49)
[2018-06-07] MEDS ORDERED: BUPIVACAINE 0.5%/EPI 30 ML SDV INJ ONE (06:49)
[2018-06-07] MEDS ORDERED: THROMBIN FOR SOLN 5,000 UNIT VIAL ONE (06:49)
[2018-06-07] MEDS ORDERED: ACETAMINOPHEN 1000 MG/100 ML 100 ML IV ONE (07:25)
[2018-06-07] MEDS ORDERED: ACETAMINOPHEN 325 MG TAB PO PRN (08:45)
[2018-06-07] MEDS ORDERED: PROMETHAZINE HCL (IM) 25 MG/ML VIAL IM PRN (08:45)
[2018-06-07] MEDS ORDERED: MORPHINE SULFATE 5 MG/ML VIAL IM PRN (08:45)
[2018-06-07] MEDS ORDERED: MAGNESIUM/ALUMINUM/SIMETHICONE 30 ML UDC PO PRN (08:45)
[2018-06-07] MEDS ORDERED: CEPACOL SORE THROAT LOZENGES PO PRN (08:45)
[2018-06-07] MEDS ORDERED: SIMVASTATIN 40 MG TAB PO SCH (09:00)
[2018-06-07] MEDS: FUROSEMIDE 40 MG TAB PO SCH (09:00)
[2018-06-07] MEDS: METOPROLOL SUCCINATE 25 MG TAB XL PO SCH (09:00)
[2018-06-07] MEDS: LISINOPRIL 10 MG TAB PO SCH (09:00)
[2018-06-07] MEDS ORDERED: FENTANYL CITRATE/PF 100MCG/2 ML INJ ONE ×2 (09:04→15:05)
--- NOTE | 2018-06-07 09:30 | Operative Report ---
DATE OF PROCEDURE: June 07, 2018 PREOPERATIVE DIAGNOSIS: L4-5 spinal stenosis above the level of previous fusion, M48.062. POSTOPERATIVE DIAGNOSIS: L4-5 spinal stenosis above the level of previous fusion, M48.062. PROCEDURES: 1. L4 bilateral decompressive laminectomy and L4-5 bilateral medial facetectomies, 12355. 2. L5 bilateral decompressive laminectomy, 39953. ANESTHESIA: General. 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 He was taken to the operating room for bilateral decompressive laminectomy without fusion at L4-5. DESCRIPTION OF PROCEDURE: After induction of general anesthesia, the patient was placed on the operating table in prone position over a Michael frame. The lumbar region was prepped and draped in sterile fashion. A preoperative x-ray was obtained. A midline incision was created. The lumbar fascia was opened along the midline and subperiosteal dissection was carried out to expose the spinous processes and laminae of L4, L5, and upper aspect of S1 lamina. An x-ray confirmed localization below the L5 lamina and one level was counted above this segment to locate the L4-5 segment. The spinous processes of L4 and L5 were resected. A high-speed drill equipped with cammie bur was used to drill the inferior half of the lamina of L4 and the superior half of lamina of L5 and the medial aspect of the L4-5 hypertrophic facet joints bilaterally. The markedly hypertrophic ligamentum flavum was resected and the dural sac and L5 nerve roots were exposed and decompressed bilaterally. Hemostasis was secured. The bony edges were waxed with bone wax. A small Hemovac drain was placed over the dura and brought out through a separate stab incision. The wound was irrigated with bacitracin solution and closed in multiple layers with #0 and 2-0 Vicryl sutures and niko. A dressing was applied. The patient was awakened, extubated, and taken to postanesthesia care unit in stable condition. No intraoperative complications were encountered. The estimated blood loss was 20 mL. Job#: [id number]
--- NOTE | 2018-06-07 10:09 | NUR ---
patient received from [facility] via stretcher. see admit assess. vitals stable with no distress. island dressing to lower back dry and intact. hemovac in place with sofía red bloody output. teds and scd's in place. LR at 120cc/hr.
[2018-06-07] MEDS: LACTATED RINGER'S 1,000 ML IV SCH ×2 (10:13→16:58)
[2018-06-07] MEDS: DULOXETINE HCL 30 MG DELAYED RELEASE PO SCH ×2 (10:16→17:07)
[2018-06-07] MEDS: METFORMIN HCL 500 MG TAB PO SCH ×2 (10:16→17:07)
[2018-06-07] MEDS: ONDANSETRON HCL INJ 2MG/ML 2ML 2 MG/ML VIAL IV PRN ×2 (11:54→18:00)
[2018-06-07] MEDS: GLIMEPIRIDE 2 MG TAB PO SCH (11:54)
[2018-06-07] MEDS: HYDROMORPHONE 2MG/ML 2 MG/ML ML IV PRN ×3 (11:54→22:23)
[2018-06-07] MEDS: OXYCODONE/ACETAMINOPHEN 5-325 1 EACH TABLET PO PRN (14:45)
[2018-06-07] MEDS: CEFAZOLIN SOD 1 GM/NS 50ML 50 ML IV SCH ×2 (14:50→21:20)
[2018-06-07] MEDS ORDERED: MIDAZOLAM HCL 2 MG/2 ML VIAL ONE (15:05)
[2018-06-07] MEDS ORDERED: DEXTROSE 50% SYRINGE 50 ML IV PRN (17:30)
[2018-06-07] MEDS ORDERED: MORPHINE SULFATE INJ 10 MG/ML IM PRN (17:30)
[2018-06-07] MEDS: INSULIN LISPRO 100 UNIT/1 ML 3ML VIAL SQ SCH (17:42)
--- NOTE | 2018-06-07 19:10 | NUR ---
REPORT RECEIVED FROM OFF GOING NURSE, PT RESTING IN BED ALERT AND ORIENTED, BED LOCKED AND LOW, IV INFUSING PER ORDER, CALL LIGHT IN REACH, INSTRUCTED TO CALL WITH NEEDS, DRESSING TO LOWER BACK C/D/I, DRAIN IN PLACE WITH NO COMPLICATIONS NOTED
[2018-06-07] MEDS ORDERED: ZOLPIDEM TARTRATE 5 MG TAB PO PRN (21:00)
[2018-06-07] MEDS ORDERED: SIMVASTATIN 20 MG TAB PO SCH (21:00)
[2018-06-08] VITALS: BP 118/57
[2018-06-08] MEDS: LACTATED RINGER'S 1,000 ML IV SCH (01:54)
[2018-06-08] MEDS: OXYCODONE/ACETAMINOPHEN 5-325 1 EACH TABLET PO PRN ×2 (02:00→06:00)
[2018-06-08 04:00] VITALS: BP 123/57
[2018-06-08] MEDS: CEFAZOLIN SOD 1 GM/NS 50ML 50 ML IV SCH (05:35)
[2018-06-08] MEDS: INSULIN LISPRO 100 UNIT/1 ML 3ML VIAL SQ SCH (07:30)
[2018-06-08 07:42] VITALS: BP 130/59
[2018-06-08 08:00] VITALS: BP 130/59
[2018-06-08] MEDS: METFORMIN HCL 500 MG TAB PO SCH (08:07)
[2018-06-08] MEDS: FUROSEMIDE 40 MG TAB PO SCH (08:07)
[2018-06-08] MEDS: LISINOPRIL 10 MG TAB PO SCH (08:07)
[2018-06-08] MEDS: HYDROMORPHONE 2MG/ML 2 MG/ML ML IV PRN (08:08)
[2018-06-08] MEDS: METOPROLOL SUCCINATE 25 MG TAB XL PO SCH (08:08)
[2018-06-08] MEDS: DULOXETINE HCL 30 MG DELAYED RELEASE PO SCH (08:13)
[2018-06-08] MEDS: GLIMEPIRIDE 2 MG TAB PO SCH (08:13)
[2018-06-08] MEDS ORDERED: NORCO 7.5-3251 EACH PO (09:45)
--- NOTE | 2018-06-08 10:20 | NUR ---
Pt discharged at this time. Pt is aox4 and able to verbalize needs. Pain is at a minimum at this time after pain medication administration this am. All discharge instruction explained to patient and family member and verbalized understanding of discharge instructions. Drain located to lumbar area was discontinued per physician orders and pressure dressing applied over area. Dressing to surgical incision changed per physician orders. Prescription for pain medication given to pt and administration instructions given.
[2018-06-08] MEDS ORDERED: NEOSTIGMINE 5 MG/5ML SYR IV ONE (10:32)
[2018-06-08] MEDS ORDERED: EPHEDRINE SULFATE INJ 50 MG/10 ML SYR IV ONE (10:32)
[2018-06-08] MEDS ORDERED: DEXAMETHASONE SOD PHOS INJ 4 MG/ML VIAL IV ONE (10:32)
[2018-06-08] MEDS ORDERED: PROPOFOL IV EMULSION 10 MG/ML 20 ML VIAL IV ONE (10:32)
[2018-06-08] MEDS ORDERED: ROCURONIUM BROMIDE 10 MG/ML 5ML VIAL IV ONE (10:32)
[2018-06-08] MEDS ORDERED: GLYCOPYRROLATE INJ 1MG/ 5 ML SYR IV ONE (10:32)
[2018-06-08] MEDS ORDERED: LIDOCAINE HCL 2% LOCAL INJ 5 ML SDV VIAL INJ ONE (10:32)
[2018-06-08] MEDS ORDERED: ONDANSETRON HCL INJ 2MG/ML 2ML 2 MG/ML VIAL IV ONE (10:32)
[2018-06-08] MEDS ORDERED: DESFLURANE 240 ML BTL INH ONE (10:32)
== END 2018-06-08 10:33 | disposition home or self-care (01) ==
LOC: OR 05:28 → PACU V 08:39 → IMCU 09:39
PROVIDERS: ADMIT Neurological Surgery; ATTEND Neurological Surgery
DX: M48.062 Spinal stenosis, lumbar region with neurogenic claudication (principal); F41.9 Anxiety disorder, unspecified; I10 Essential (primary) hypertension; E78.5 Hyperlipidemia, unspecified; I25.10 Atherosclerotic heart disease of native coronary artery without angina pectoris; E11.9 Type 2 diabetes mellitus without complications; I69.351 Hemiplegia and hemiparesis following cerebral infarction affecting right dominant side; K58.9 Irritable bowel syndrome, unspecified; Z95.1 Presence of aortocoronary bypass graft; Z95.5 Presence of coronary angioplasty implant and graft; Z87.891 Personal history of nicotine dependence; Z79.82 Long term (current) use of aspirin; Z79.84 Long term (current) use of oral hypoglycemic drugs; Z01.810 Encounter for preprocedural cardiovascular examination; Z01.812 Encounter for preprocedural laboratory examination; Z01.811 Encounter for preprocedural respiratory examination
CPT/HCPCS: 36415 ×3; 63047; 63048; 71046; 72020; 80048; 82948 ×2; 85025; 85610; 85730; 86850; 86900; 88304; 88311; 93005; G0378 ×2; J0131; J0690 ×3; J1100; J1170 ×2; J2001; J2250; J2405 ×2; J2704; J3490; J7121; J2270